=== PATIENT | female | born 1975 | race Caucasian/White ===

== ENCOUNTER 2017-12-10 20:05 | Emergency (ER) | payer SELFPAY ==
--- NOTE | 2017-12-10 20:31 | EDPHY ---
H & P Smoking Status: Current every day smoker Time Seen by Provider: 12/10/17 20:19 HPI/ROS: CHIEF COMPLAINT: Chest pain HISTORY OF PRESENT ILLNESS: 42-year-old woman presents with intermittent chest pain which is been present for the last week. She says symptoms come on last less than 1 min or located over her left anterior chest. Sometimes associated with dizziness. Especially when she is lying down. Symptoms she also feels her heart skips a beat like her heart is"dropping."She just did travel on a bus from [facility] and arrived here 2 days ago. No leg swelling or leg pain. She did have a stress test 6 months ago treadmill in [place] which she passed and did not have evidence of ACS. Symptoms mild. REVIEW OF SYSTEMS: Eye: no change in vision ENT: no sore throat Cardiac: HPI Pulmonary: no cough or SOB Abdomen: no vomiting, diarrhea, abdominal pain Musculoskeletal: no back pain or neck pain Skin: no rash Neuro: Intermittent dizziness which she describes as spinning without headache or neck pain. Not currently present. Constitutional: no fever : no urinary symptoms A comprehensive 10 point review of systems is otherwise negative aside from elements mentioned in the history of present illness. PAST MEDICAL HISTORY: Type 2 diabetes, high cholesterol, hypertension. With history of previous PVCs. Social history: Tobacco smoking, no cocaine. General Appearance: Alert and conversant, cooperative. Eyes: No scleral icterus. ENT, Mouth: Normal mucous membranes. Respiratory: Normal respiratory effort, breath sounds equal, lungs are clear to auscultation. Cardiovascular: Regular rate and rhythm. Gastrointestinal: Abdomen is soft and non tender. Neurological: Alert, face symmetric, normal motor and sensory in extremities. Normal [id number] bilaterally and fluent speech. Extraocular motion intact and pupils equal and reactive. Skin: Warm and dry, no rashes. Musculoskeletal: No peripheral edema. No calf tenderness. Psychiatric: Not agitated. Emergency Department course/MDM: Patient was telling me initially she was concerned about stroke but I think that is unlikely. She does have risk factors but and EKG without ischemic changes and a low suspicion history. HEART score of 2 for risk factors, low risk for MACE from ACS. 2143: Plan for repeat EKG and troponin at 3:00 a.m., discharge if negative. Signed out to [facility] at 0. (Aquino,Alexi S) Constitutional: Initial Vital Signs Temperature (C) 36.8 C 12/10/17 20:07 Heart Rate 96 12/10/17 20:07 Respiratory Rate 16 12/10/17 20:07 Blood Pressure 160/107 H 12/10/17 20:07 O2 Sat (%) 96 12/10/17 20:07 O2 Delivery Mode Room Air Medical Decision Making - Diagnostics Imaging: I viewed and interpreted images myself - Diagnostics EKG Interpretation: 12-lead EKG interpreted by me; official reading is in trace master. My interpretation is sinus rhythm rate 85 with PVC and QT 408. (Alexi Aquino) Imaging Results: Imaging Impressions Chest X-Ray 12/10/17 20:42 Impression: No evidence of acute cardiopulmonary abnormality. ED Course/Re-evaluation: 1234AM: Patient is resting comfortably and sleeping. She has no complaints. She had a repeat EKG repeat troponin. Both troponins are negative. Initial troponin and 2nd troponin. Her 2nd EKG shows no acute ischemic change. Is unchanged from her previous EKG. She is not actively having chest pain. She does have cardiovascular risk factors. I do recommend she follows up with primary care doctor. Additionally discussed return precautions with her she understands to return emergency room she develops worsening chest pain or shortness of breath. Recommend refraining from smoking. Return precautions discussed with her she understands. She is comfortable being discharged. (Alejo Nino) Differential Diagnosis: Differential diagnosis considered for chest pain including but not limited to myocardial ischemia, aortic dissection, pericarditis, pulmonary embolus, chest wall pain, pleural inflammation and pulmonary infectious causes. (Alexi Aquino) - Data Points Laboratory Results: Laboratory Results 12/10/17 20:25 12/10/17 20:25 12/10/17 12/10/17 12/10/17 23:30 20:25 20:25 WBC RBC Hgb Hct MCV MCH MCHC RDW Plt Count MPV Neut % (Auto) Lymph % (Auto) [place] % (Auto) Eos % (Auto) Baso % (Auto) Nucleat RBC Rel Count Absolute Neuts (auto) Absolute Lymphs (auto) Absolute Monos (auto) Absolute Eos (auto) Absolute Basos (auto) Absolute Nucleated RBC Immature Gran % Immature Gran # D-Dimer 0.42 ug/mLFEU ug/mLFEU (0.00-0.50) Sodium 141 mEq/L mEq/L (135-145) Potassium 4.2 mEq/L mEq/L (3.3-5.0) Chloride 103 mEq/L mEq/L (97-110) Carbon Dioxide 22 mEq/l mEq/l (22-31) Anion Gap 16 mEq/L mEq/L (8-16) BUN 11 mg/dL mg/dL (7-23) Creatinine 0.8 mg/dL mg/dL (0.6-1.0) Estimated GFR > 60 Glucose 196 mg/dL H mg/dL (70-100) Calcium 9.8 mg/dL mg/dL (8.5-10.4) Troponin I < 0.012 ng/mL ng/mL < 0.012 ng/mL ng/mL (0.000-0.034) (0.000-0.034) 12/10/17 20:25 WBC 12.94 10^3/uL H 10^3/uL (3.80-9.50) RBC 5.12 10^6/uL 10^6/uL (4.18-5.33) Hgb 15.6 g/dL g/dL (12.6-16.3) Hct 46.1 % % (38.0-47.0) MCV 90.0 fL fL (81.5-99.8) MCH 30.5 pg pg (27.9-34.1) MCHC 33.8 g/dL g/dL (32.4-36.7) RDW 12.9 % % (11.5-15.2) Plt Count 297 10^3/uL 10^3/uL (150-400) MPV 11.2 fL fL (8.7-11.7) Neut % (Auto) 60.1 % % (39.3-74.2) Lymph % (Auto) 31.3 % % (15.0-45.0) [place] % (Auto) 6.1 % % (4.5-13.0) Eos % (Auto) 1.5 % % (0.6-7.6) Baso % (Auto) 0.5 % % (0.3-1.7) Nucleat RBC Rel Count 0.0 % % (0.0-0.2) Absolute Neuts (auto) 7.76 10^3/uL H 10^3/uL (1.70-6.50) Absolute Lymphs (auto) 4.05 10^3/uL H 10^3/uL (1.00-3.00) Absolute Monos (auto) 0.79 10^3/uL 10^3/uL (0.30-0.80) Absolute Eos (auto) 0.20 10^3/uL 10^3/uL (0.03-0.40) Absolute Basos (auto) 0.07 10^3/uL 10^3/uL (0.02-0.10) Absolute Nucleated RBC 0.00 10^3/uL 10^3/uL (0-0.01) Immature Gran % 0.5 % % (0.0-1.1) Immature Gran # 0.07 10^3/uL 10^3/uL (0.00-0.10) D-Dimer Sodium Potassium Chloride Carbon Dioxide Anion Gap BUN Creatinine Estimated GFR Glucose Calcium Troponin I Departure - Departure Disposition: Home, Routine, Self-Care Clinical Impression: Chest pain Qualifiers: Chest pain type: unspecified Qualified Code(s): R07.9 - Chest pain, unspecified Condition: Good Instructions: Chest Pain (ED) Additional Instructions: 1. Return emergency room if you have worsening symptoms questions or concerns. Referrals: [facility],. [Clinic] - As per Instructions
--- NOTE | 2017-12-10 20:42 | CPEKG ---
Heart Rate: 85 RR Interval: 706 P-R Interval: 148 QRSD Interval: 100 QT Interval: 408 QTC Interval: 486 P [place]: 28 QRS [place]: 40 T Wave [place]: 48 EKG Severity - BORDERLINE ECG - EKG Impression: SINUS RHYTHM EKG Impression: VENTRICULAR PREMATURE COMPLEX EKG Impression: BORDERLINE PROLONGED QT INTERVAL Electronically Signed By: Alexi Aquino 10-Dec-2017 20:45:24
[2017-12-10 20:49] LABS: PLATELET COUNT 297 10^3/uL (150-400)
--- NOTE | 2017-12-11 00:13 | CPEKG ---
Heart Rate: 57 RR Interval: 1053 P-R Interval: 164 QRSD Interval: 100 QT Interval: 484 QTC Interval: 472 P [place]: 38 QRS [place]: 40 T Wave [place]: 21 EKG Severity - BORDERLINE ECG - EKG Impression: SINUS RHYTHM EKG Impression: BORDERLINE T WAVE ABNORMALITIES Electronically Signed By: Alexi Aquino 11-Dec-2017 14:12:27
[2017-12-11 00:38] VITALS: BP 113/55
== END 2017-12-11 00:40 | disposition home or self-care (01) ==
DX: R07.9 Chest pain, unspecified (principal); E11.9 Type 2 diabetes mellitus without complications; I10 Essential (primary) hypertension; F17.200 Nicotine dependence, unspecified, uncomplicated

== ENCOUNTER 2017-12-24 15:09 | Emergency (ER) | payer BC, MEDICAID ==
--- NOTE | 2017-12-24 15:21 | CPEKG ---
Heart Rate: 85 RR Interval: 706 P-R Interval: 148 QRSD Interval: 102 QT Interval: 416 QTC Interval: 495 P [place]: 34 QRS [place]: 33 T Wave [place]: 45 EKG Severity - BORDERLINE ECG - EKG Impression: SINUS RHYTHM EKG Impression: BORDERLINE PROLONGED QT INTERVAL Electronically Signed By: Polina Anderson 24-Dec-2017 19:58:42
[2017-12-24] MEDS ORDERED: NS 500 ML IV ONE (15:35)
[2017-12-24 15:50] LABS: PLATELET COUNT 328 10^3/uL (150-400)
--- NOTE | 2017-12-24 16:26 | EDPHY ---
H & P Time Seen by Provider: 12/24/17 15:18 HPI/ROS: HPI Palpitations, shortness of breath. 42-year-old female by private vehicle. This patient reports that for the last 2 -3 weeks she has had intermittent palpitations. She has had issues with PVCs in the past. She reports that today her palpitations were worse and she believes that she is in bigeminy or trigeminy. She also reports having associated shortness of breath and feeling anxious. She denies chest pain. ROS: Constitutional: No fever, no chills. No weakness. Eyes: No discharge. No changes in vision. ENT: No sore throat. No nasal congestion or rhinorrhea. Respiratory: No cough. No shortness of breath. Cardiac: No chest pain, no palpitations. Gastrointestinal: No abdominal pain, no vomiting, no diarrhea. Genitourinary: No hematuria. No dysuria or increased frequency with urination. Musculoskeletal: No back pain. No neck pain. No myalgias or arthralgias. Skin: No rashes. Neurological: No headache. No focal weakness or altered sensation. Past medical history: Hypertension, type 2 diabetes, PVCs, hypothyroidism, hyperlipidemia. Medications include losartan, metoprolol, metformin. Social history: She does drink caffeinated beverages. 1 cup of coffee in the morning. Denies any methamphetamine, cocaine or other street drug abuse. Denies alcohol. She is here by herself. Primary care is through [facility]. She does not smoke. Physical Exam: General Appearance: Alert, anxious but no distress. This patient is responding to questions appropriately and in full sentences. This patient appears well-hydrated and well-nourished. Eyes: Pupils equal and round no pallor or injection. No lid edema, erythema or injection. Respiratory: There are no retractions, lungs are clear to auscultation with good air movement bilaterally. Cardiovascular: Regular rate and rhythm with intermittent PVCs. No murmur. Gastrointestinal: Abdomen is soft and nontender, no masses, bowel sounds normal. No focal tenderness at McBurney's point. No Brito sign. Neurological: Motor sensory function is grossly intact. Cranial nerves are normal. Gait is normal. Skin: Warm and dry, no rashes. Musculoskeletal: Neck is supple and nontender. Extremities are symmetrical. All joints range without pain or impingement. Psychiatric: No agitation. No depression. Database: EKG: EKG time is 3:19 p.m.; EKG shows a narrow complex normal sinus rhythm with a ventricular rate of 85. The HI, QRS, QT intervals are within normal limits. There are no ST-T wave changes indicative of ischemic or injury pattern. No evidence of right heart strain. Interpreted by me. Cardiac rhythm strip time 3:15 p.m. Shows trigeminal PVCs. Imaging: Chest x-ray PA and lateral; the cardiac mediastinal silhouette is unremarkable. No evidence of infiltrate or pneumothorax. No acute cardiopulmonary disease process noted. Interpreted by me. Procedures: Emergency department course: IV placed. The patient was placed on a cardiac cath tech. The patient was started on IV normal saline with 500 cc to be given over the next hour. Vital signs reviewed. She is hypertensive and mildly tachypneic. She will be given 0.5 mg of IV Ativan for anxiety. 4:45 p.m., patient re-evaluated. Resting comfortably at this time. 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 Blood pressure currently 163/103. Patient is feeling better. Results of diagnostic workup discussed with her. She reports that she is currently out of her metoprolol and does not have this medication for evening dose. She takes 25 mg twice daily. She did take her morning dose. She was given 25 mg in the emergency department now. 5:15 p.m., patient re-evaluated. Blood pressure currently 129/95. dough mixer operator shows a narrow complex sinus rhythm with ventricular rate of 72. Pulse oximetry 95% on room air. I discussed her remaining blood test results with her. I discussed the importance of taking her medications as prescribed routinely. She feels comfortable going home and I feel she is safe for discharge. Her emergency department workup has been reassuring. I have told her to avoid caffeinated beverages. She is to continue taking her medications as prescribed. She is to follow up with her primary care physician on Sunday or Sunday of this week for re-evaluation. She feels comfortable with this plan. Return to emergency department precautions were discussed with her. All of her questions were answered. She was discharged from the emergency department in good condition. Differential Diagnosis: The differential diagnosis on this patient includes but is not limited to anxiety, PVCs, uncontrolled hypertension. Thyroid storm, atrial fibrillation, SVT unlikely. This represents a partial list of diagnoses considered. These considerations are based on history, physical exam, past history, reassessment and diagnostic testing. Smoking Status: Current every day smoker Constitutional: Initial Vital Signs Temperature (C) 36.8 C 12/24/17 15:09 Heart Rate 105 H 12/24/17 15:09 Respiratory Rate 24 H 12/24/17 15:09 Blood Pressure 181/115 H 12/24/17 15:09 O2 Sat (%) 98 12/24/17 15:09 O2 Delivery Mode Room Air Allergies/Adverse Reactions: acetaminophen [From Vicodin] Allergy (Verified 12/24/17 15:19) hydrocodone [From Vicodin] Allergy (Verified 12/24/17 15:19) Home Medications: Medication Instructions Recorded Aspirin 12/24/17 Losartan Potassium 12/24/17 Metformin HCl 12/24/17 Metoprolol Succinate 12/24/17 Medical Decision Making - Diagnostics Imaging Results: Imaging Impressions Chest X-Ray 12/24/17 15:53 Impression: 1. No acute pulmonary disease. 2. No pneumothorax. - Data Points Laboratory Results: Laboratory Results 12/24/17 15:14 12/24/17 15:14 12/24/17 12/24/17 12/24/17 15:14 15:14 15:14 WBC RBC Hgb Hct MCV MCH MCHC RDW Plt Count MPV Neut % (Auto) Lymph % (Auto) [place] % (Auto) Eos % (Auto) Baso % (Auto) Nucleat RBC Rel Count Absolute Neuts (auto) Absolute Lymphs (auto) Absolute Monos (auto) Absolute Eos (auto) Absolute Basos (auto) Absolute Nucleated RBC Immature Gran % Immature Gran # D-Dimer 0.33 ug/mLFEU ug/mLFEU (0.00-0.50) Sodium 141 mEq/L mEq/L (135-145) Potassium 4.5 mEq/L mEq/L (3.3-5.0) Chloride 106 mEq/L mEq/L (97-110) Carbon Dioxide 24 mEq/l mEq/l (22-31) Anion Gap 11 mEq/L mEq/L (8-16) BUN 12 mg/dL mg/dL (7-23) Creatinine 0.7 mg/dL mg/dL (0.6-1.0) Estimated GFR > 60 Glucose 155 mg/dL H mg/dL (70-100) Calcium 9.5 mg/dL mg/dL (8.5-10.4) Troponin I < 0.012 ng/mL ng/mL (0.000-0.034) NT-Pro-B Natriuret Pep 237 pg/mL H pg/mL (0-125) TSH Pending Beta HCG, Qual NEGATIVE 12/24/17 15:14 WBC 10.73 10^3/uL H 10^3/uL (3.80-9.50) RBC 4.87 10^6/uL 10^6/uL (4.18-5.33) Hgb 15.0 g/dL g/dL (12.6-16.3) Hct 44.6 % % (38.0-47.0) MCV 91.6 fL fL (81.5-99.8) MCH 30.8 pg pg (27.9-34.1) MCHC 33.6 g/dL g/dL (32.4-36.7) RDW 13.0 % % (11.5-15.2) Plt Count 328 10^3/uL 10^3/uL (150-400) MPV 10.8 fL fL (8.7-11.7) Neut % (Auto) 61.7 % % (39.3-74.2) Lymph % (Auto) 28.0 % % (15.0-45.0) [place] % (Auto) 7.3 % % (4.5-13.0) Eos % (Auto) 1.8 % % (0.6-7.6) Baso % (Auto) 0.7 % % (0.3-1.7) Nucleat RBC Rel Count 0.0 % % (0.0-0.2) Absolute Neuts (auto) 6.64 10^3/uL H 10^3/uL (1.70-6.50) Absolute Lymphs (auto) 3.00 10^3/uL 10^3/uL (1.00-3.00) Absolute Monos (auto) 0.78 10^3/uL 10^3/uL (0.30-0.80) Absolute Eos (auto) 0.19 10^3/uL 10^3/uL (0.03-0.40) Absolute Basos (auto) 0.07 10^3/uL 10^3/uL (0.02-0.10) Absolute Nucleated RBC 0.00 10^3/uL 10^3/uL (0-0.01) Immature Gran % 0.5 % % (0.0-1.1) Immature Gran # 0.05 10^3/uL 10^3/uL (0.00-0.10) D-Dimer Sodium Potassium Chloride Carbon Dioxide Anion Gap BUN Creatinine Estimated GFR Glucose Calcium Troponin I NT-Pro-B Natriuret Pep TSH Beta HCG, Qual Medications Given: Discontinued Medications Sodium Chloride (Ns) 500 mls @ 1,000 mls/hr IV EDNOW ONE PRN Reason: Protocol Stop: 12/24/17 16:04 Last Admin: 12/24/17 15:47 Dose: 500 mls Lorazepam (Ativan Injection) 0.5 mg IVP EDNOW ONE Stop: 12/24/17 16:28 Last Admin: 12/24/17 16:51 Dose: 0.5 mg Metoprolol Tartrate (Lopressor) 25 mg PO EDNOW ONE Stop: 12/24/17 16:48 Last Admin: 12/24/17 16:50 Dose: 25 mg Departure - Departure Disposition: Home, Routine, Self-Care Clinical Impression: PVCs (premature ventricular contractions), Hypertension, Anxiety Condition: Good Instructions: Anxiety (ED), Premature Atrial Contractions (ED) Additional Instructions: Read and follow provided instructions. Follow-up with your primary care physician in 1-2 days for re-evaluation. Take your medication as prescribed. Do not drink coffee or other caffeinated beverages. Return to the emergency department for worsening symptoms, shortness of breath, chest pain, palpitations or other serious concerns. Referrals: NONE *PRIMARY CARE P,. [Primary Care Provider] - As per Instructions
[2017-12-24] MEDS ORDERED: LORazepam 2 MG/ML INJ IVP ONE (16:27)
[2017-12-24] MEDS ORDERED: METOPROLOL TARTRATE 25 MG TAB PO ONE (16:47)
[2017-12-24 17:24] VITALS: BP 138/88
== END 2017-12-24 17:23 | disposition home or self-care (01) ==
LOC: EDUNIT#
DX: I49.3 Ventricular premature depolarization (principal); I10 Essential (primary) hypertension; F41.9 Anxiety disorder, unspecified; E11.9 Type 2 diabetes mellitus without complications; F17.200 Nicotine dependence, unspecified, uncomplicated; Z79.84 Long term (current) use of oral hypoglycemic drugs
CPT/HCPCS: 96374; J2060

== ENCOUNTER 2018-04-14 12:38 | Emergency (ER) | payer MEDICAID ==
[2018-04-14 13:09] LABS: PLATELET COUNT 398 10^3/uL (150-400)
--- NOTE | 2018-04-14 13:12 | EDPHY ---
HPI/HX/ROS/PE/MDM Narrative: CHIEF COMPLAINT: "I had some chest pains for a couple days;" shortness of breath HPI: The patient is a 43 y/o female with a history of diabetes, hypertension, and pleurisy who complains of 2-3 days of intermittent central chest pain that is not present today. She's previously had episodes of pleurisy that felt somewhat similar to today, but that discomfort generally improved with positioning, which is different from her recent episode of chest pain. Last night she felt vaguely dizzy with shortness of breath and mild chest pain so she took aspirin around 20:30. She saw EMS last night and was advised to seek care due to concern for a respiratory infection. Her pain was not present this morning, but she does have some shortness of breath and a cough so she came to the ED. She denies fever, abdominal pain, vomiting, diarrhea, weakness, urinary symptoms. REVIEW OF SYSTEMS: A comprehensive 10 system review of systems is otherwise negative aside from elements mentioned in the history of present illness. PMH: Type 2 diabetes, hypertension, PVCs, hypertension, hypothyroidism, pleurisy. SOCIAL HISTORY: Smoker. PCP: [facility]. PHYSICAL EXAM: General:Patient is alert, in no acute distress. ENT:Eyes are normal to inspection. ENT inspection normal. Neck: Normal inspection. Full range of motion. Respiratory:No respiratory distress. Breath sounds normal bilaterally. Cardiovascular: Regular rate and rhythm. Strong peripheral pulses. Normal cap refill. Abdomen:The abdomen is nontender to palpation. There are no peritoneal signs. Back: Normal to inspection. No tenderness to palpation. Skin: Normal color. No rash. Warm and dry. Extremities: Normal appearance. Full range of motion. Neuro: Oriented x3. Normal motor function. Normal sensory function. ED Course: This is a 43 y/o female who presents with a 2-3-day history of intermittent chest pain that feels somewhat similar to prior episodes of pleurisy and is currently not present. She reports some associated dyspnea and a cough. On exam , she is afebrile and has clear lungs. Suspect recurrent pleurisy. Plan for IV, labs, EKG, chest x-ray. POC troponin negative. The 12 lead EKG was interpreted by myself. Sinus tachycardia. See hard copy and/ or "tracemaster" electronic copy for interpretation. Chest x-ray: negative D-dimer negative. Reassessed patient to discuss findings. She is sleeping comfortably. She will be discharged home with standard care and follow up instructions. Return precautions discussed. - Data Points Imaging Results: Imaging Impressions Chest X-Ray 04/14/18 12:54 Impression: No acute abnormality, or significant interval change from previous studies in November 2017. Imaging: I viewed and interpreted images myself Laboratory Results: Laboratory Results 04/14/18 12:50 04/14/18 12:50 04/14/18 04/14/18 04/14/18 12:53 12:50 12:50 WBC RBC Hgb Hct MCV MCH MCHC RDW Plt Count MPV Neut % (Auto) Lymph % (Auto) [place] % (Auto) Eos % (Auto) Baso % (Auto) Nucleat RBC Rel Count Absolute Neuts (auto) Absolute Lymphs (auto) Absolute Monos (auto) Absolute Eos (auto) Absolute Basos (auto) Absolute Nucleated RBC Immature Gran % Immature Gran # D-Dimer 0.50 ug/mLFEU ug/mLFEU (0.00-0.50) Sodium Potassium Chloride Carbon Dioxide Anion Gap BUN Creatinine Estimated GFR Glucose Calcium POC Troponin I 0.01 ng/mL ng/mL (0.00-0.08) Beta HCG, Qual NEGATIVE 04/14/18 04/14/18 12:50 12:50 WBC 15.14 10^3/uL H 10^3/uL (3.80-9.50) RBC 5.31 10^6/uL 10^6/uL (4.18-5.33) Hgb 15.8 g/dL g/dL (12.6-16.3) Hct 46.6 % % (38.0-47.0) MCV 87.8 fL fL (81.5-99.8) MCH 29.8 pg pg (27.9-34.1) MCHC 33.9 g/dL g/dL (32.4-36.7) RDW 13.0 % % (11.5-15.2) Plt Count 398 10^3/uL 10^3/uL (150-400) MPV 10.0 fL fL (8.7-11.7) Neut % (Auto) 63.5 % % (39.3-74.2) Lymph % (Auto) 26.6 % % (15.0-45.0) [place] % (Auto) 7.5 % % (4.5-13.0) Eos % (Auto) 1.1 % % (0.6-7.6) Baso % (Auto) 0.7 % % (0.3-1.7) Nucleat RBC Rel Count 0.0 % % (0.0-0.2) Absolute Neuts (auto) 9.63 10^3/uL H 10^3/uL (1.70-6.50) Absolute Lymphs (auto) 4.02 10^3/uL H 10^3/uL (1.00-3.00) Absolute Monos (auto) 1.13 10^3/uL H 10^3/uL (0.30-0.80) Absolute Eos (auto) 0.16 10^3/uL 10^3/uL (0.03-0.40) Absolute Basos (auto) 0.11 10^3/uL H 10^3/uL (0.02-0.10) Absolute Nucleated RBC 0.00 10^3/uL 10^3/uL (0-0.01) Immature Gran % 0.6 % % (0.0-1.1) Immature Gran # 0.09 10^3/uL 10^3/uL (0.00-0.10) D-Dimer Sodium 136 mEq/L mEq/L (135-145) Potassium 4.6 mEq/L mEq/L (3.3-5.0) Chloride 107 mEq/L mEq/L (97-110) Carbon Dioxide 19 mEq/l L mEq/l (22-31) Anion Gap 10 mEq/L mEq/L (8-16) BUN 11 mg/dL mg/dL (7-23) Creatinine 0.6 mg/dL mg/dL (0.6-1.0) Estimated GFR > 60 Glucose 147 mg/dL H mg/dL (70-100) Calcium 9.9 mg/dL mg/dL (8.5-10.4) POC Troponin I Beta HCG, Qual Medications Given: Discontinued Medications Sodium Chloride (Ns) 1,000 mls @ 0 mls/hr IV EDNOW ONE; Wide Open PRN Reason: Protocol Stop: 04/14/18 13:29 Last Admin: 04/14/18 13:35 Dose: 1,000 mls Point of Care Test Results: Chemistry 04/14/18 12:53 POC Troponin I 0.01 ng/mL ng/mL (0.00-0.08) General Time Seen by Provider: 04/14/18 12:53 Initial Vital Signs: Initial Vital Signs Temperature (C) 36.9 C 04/14/18 12:40 Heart Rate 105 H 04/14/18 12:40 Respiratory Rate 18 04/14/18 12:40 Blood Pressure 129/82 H 04/14/18 12:40 O2 Sat (%) 96 04/14/18 12:40 O2 Delivery Mode Room Air Allergies/Adverse Reactions: acetaminophen [From Vicodin] Allergy (Verified 04/14/18 12:40) hydrocodone [From Vicodin] Allergy (Verified 04/14/18 12:40) Home Medications: Medication Instructions Recorded Aspirin 12/24/17 Losartan Potassium 12/24/17 Metformin HCl 12/24/17 Metoprolol Succinate 12/24/17 Departure - Departure Disposition: Home, Routine, Self-Care Clinical Impression: Pleurisy Condition: Good Instructions: Pleurisy (ED) Additional Instructions: 1. Take 600mg ibuprofen every 8 hours as needed for pain and inflammation over the next 2-3 days. 2. I recommend quitting cigarette smoking as this can contribute to your symptoms and cause other negative health impacts. 3. Please follow up with your primary care provider as needed for unimproved symptoms over the next 2-3 days. 4. Return to the ED for worsening of condition. Referrals: Delmis Christie PA [Primary Care Provider] - As per Instructions Report Scribed for: Ever Thomas Report Scribed by: Sydnie Shah Date of Report: 04/14/18 Time of Report: 13:27 Physician Review and Approval Statement: Portions of this note were transcribed by an ED scribe. I personally performed the history, physical exam, and medical decision making; and confirm the accuracy of the information in the transcribed note.
[2018-04-14] MEDS ORDERED: NS 1,000 ML IV ONE (13:28)
[2018-04-14 14:21] VITALS: BP 134/77
--- NOTE | 2018-04-14 14:21 | CPEKG ---
Test Reason : OPEN Blood Pressure : / mmHG Vent. Rate : 101 BPM Atrial Rate : 101 BPM P-R Int : 135 ms QRS Dur : 092 ms QT Int : 352 ms P-R-T Axes : 031 035 074 degrees QTc Int : 457 ms Sinus tachycardia Confirmed by Drew Aggarwal ([id number]) on 04/14/2018 2:20:48 PM Referred By: Confirmed By:Drew Aggarwal
== END 2018-04-14 14:21 | disposition home or self-care (01) ==
DX: R09.1 Pleurisy (principal); E86.9 Volume depletion, unspecified
CPT/HCPCS: 84484-PO

== ENCOUNTER 2018-06-12 12:18 | Emergency (ER) | payer MEDICAID ==
--- NOTE | 2018-06-12 13:35 | EDPHY ---
H & P Time Seen by Provider: 06/12/18 12:56 HPI/ROS: HPI Fall. Lower back pain. 43-year-old female on foot. She is currently homeless. She reports that she fell earlier this morning on her buttocks. She complains of mid sacral pain. She has had no bowel or bladder incontinence. Denies any loss of sensation or weakness in her extremities. No history of malignancy. Pain described as worse on the left side. She has not had a fever. ROS: Constitutional: No fever, no chills. No weakness. Gastrointestinal: No abdominal pain, no vomiting, no diarrhea. Genitourinary: No hematuria. No dysuria or increased frequency with urination. Musculoskeletal: As above. No neck pain. She denies extremity pain. Skin: No rashes. No lacerations or abrasions. Neurological: No headache. No focal weakness or altered sensation. Past medical history: Hypertension, type 2 diabetes, arrhythmia, hypothyroid, hyperlipidemia. Primary care is through [facility]. Social history: She is homeless. Smokes occasionally. She denies alcohol. She denies IV drugs and street drugs. Physical Exam: General Appearance: Alert, no distress. This patient is responding to questions appropriately and in full sentences. This patient appears well- hydrated and well-nourished. Head: Normocephalic atraumatic. Face: Facial bones are stable on palpation. Eyes: Pupils equal and round and reactive to light, no pallor or injection. No lid erythema or edema. Neurological: Motor sensory function is intact. Cranial nerves are normal. Cerebellar function intact. Skin: Warm and dry, no rashes. No lacerations, abrasions or contusions. Musculoskeletal: Neck is supple and nontender. The trachea is midline. No midline cervical, thoracic, lumbar or sacral tenderness on palpation. No tenderness on palpation over the coccyx. No flank tenderness on palpation. She does have tenderness, left of midline, mid sacrum, no bony step-off or deformity noted on palpation. There is no edema, erythema, warmth, fluctuance or ecchymosis noted. She has no midline cervical, thoracic, lumbar, sacral tenderness on palpation. She has a negative same side and cross side straight leg raise test. She is neurologically intact in all myotomes in dermatomes of the bilateral lower extremities. Extremities are symmetrical, full range of motion. All joints in the bilateral upper and bilateral lower extremities range without pain or impingement. No tenderness on palpation of the long bones in the bilateral upper and bilateral lower extremities. Psychiatric: No agitation. No depression. Database: EKG: Imaging: Sacral coccyx x-ray series: No sacral or coccygeal fracture, subluxation, dislocation noted. Interpreted by myself. I also reviewed the report offered by radiologist. Procedures: Emergency department course: Triage vital signs reviewed. She is moderately hypertensive. She is afebrile. Vital signs are otherwise normal. Patient had x-rays ordered from triage. I discussed the results of these x-rays with her. She is up and ambulatory under her own power. I discussed high-dose ibuprofen for the next 3 days and follow up with [facility] in 2-3 days for re-evaluation. She is in agreement with this plan. Return to emergency department precautions were thoroughly reviewed with her. All of her questions were answered. She was discharged from the emergency department in good condition. Differential Diagnosis: The differential diagnosis on this patient includes but is not limited to sacral coccygeal contusion. Fracture, subluxation, dislocation, other significant traumatic injury unlikely. This represents a partial list of diagnoses considered. These considerations are based on history, physical exam , past history, reassessment and diagnostic testing. Smoking Status: Current every day smoker Constitutional: Initial Vital Signs Temperature (C) 36.7 C 06/12/18 12:27 Heart Rate 80 06/12/18 12:27 Respiratory Rate 16 06/12/18 12:27 Blood Pressure 156/88 H 06/12/18 12:27 O2 Sat (%) 97 06/12/18 12:27 O2 Delivery Mode Room Air Allergies/Adverse Reactions: acetaminophen [From Vicodin] Allergy (Verified 04/14/18 12:40) hydrocodone [From Vicodin] Allergy (Verified 04/14/18 12:40) Home Medications: Medication Instructions Recorded Aspirin 12/24/17 Losartan Potassium 12/24/17 Metformin HCl 12/24/17 Metoprolol Succinate 12/24/17 Medical Decision Making - Diagnostics Imaging Results: Imaging Impressions Sacrum and Coccyx X-Ray 06/12/18 12:36 Impression: No sacral or coccygeal fracture identified. Departure - Departure Disposition: Home, Routine, Self-Care Clinical Impression: Sacral contusion Condition: Good Instructions: Coccyx Injury (ED), Back Pain (ED) Additional Instructions: Read and follow provided instructions. Follow-up with your primary care physician in 1-2 days for re-evaluation. Ibuprofen dosin mg every 6 hours with meals for the next 3 days only. Take only as needed for pain. Return to the emergency department for worsening pain, bowel or bladder incontinence, loss of sensation or weakness in your lower extremities, pain persisting greater than 5 days and not improving or other serious concerns. Please allow Ms Hammer the use of a bottom bunk while at the correction through per Dr Anderson. Referrals: Delmis Christie PA [Primary Care Provider] - As per Instructions
[2018-06-12 13:52] VITALS: BP 134/75
== END 2018-06-12 13:50 | disposition home or self-care (01) ==
LOC: EDUNIT#
DX: S30.0XXA Contusion of lower back and pelvis, initial encounter (principal); W19.XXXA Unspecified fall, initial encounter; I10 Essential (primary) hypertension; E78.5 Hyperlipidemia, unspecified; E03.9 Hypothyroidism, unspecified; E11.9 Type 2 diabetes mellitus without complications; F17.200 Nicotine dependence, unspecified, uncomplicated; Z59.0 Homelessness

== ENCOUNTER 2018-08-07 15:46 | Emergency (ER) | payer MEDICAID ==
--- NOTE | 2018-08-07 16:05 | EDPHY ---
H & P Stated Complaint: Chest Pain x 2 days Time Seen by Provider: 08/07/18 15:53 HPI/ROS: CHIEF COMPLAINT: Chest pain, dyspnea times several months HISTORY OF PRESENT ILLNESS: 43-year-old homeless female took the bus to the ER complaining of chest pain, palpitations, dyspnea, for the past she several months, more pronounced in the past 2-3 days. URI symptoms 7 days ago by and large resolved. No syncope or near syncope. No cocaine use. No back or flank pain. No headache. No abdominal pain. No nausea or vomiting. No cough or flu -like symptoms. No URI symptoms. Nonpleuritic. No definitive pattern. Not related to exertion however Patient has been seen most recently the [facility] 1 week ago for same complaint also seen by Anjel clarke 3 months ago for same Denies: Unilateral leg swelling, hemoptysis, surgery within the past 4 weeks, prior DVT or PE history, exogenous estrogen use PRIMARY CARE PROVIDER: [facility] REVIEW OF SYSTEMS: 10 systems reviewed and negative with the exception of the elements mentioned in the history of present illness PAST MEDICAL & SURGICAL HISTORY: No prior DVT or PE history. History of diabetes. No history of acute coronary syndrome SOCIAL HISTORY:1 pack per day tobacco Family history: No family history of premature coronary artery disease or coagulopathic disorder PHYSICAL EXAM (Prior to examination, patient consented to physical exam, hands were washed and my usual and customary physical exam procedures followed) 1) GENERAL: Well-developed, well-nourished, alert and oriented. Appears to be in no acute distress. 2) HEAD: Normocephalic, atraumatic 3) HEENT: Pupils equal, round, reactive to light bilaterally. Sclera anicteric. Nasopharynx, oropharynx, clear, no lesions. MoistDry mucous membranes. Ears bilaterally with normal tympanic membranes. 4) NECK: Full range of motion, no meningeal signs. No carotid bruit 5) LUNGS: Clear auscultation bilaterally, no wheezes, no rhonchi, no retractions. 6) HEART: Regular rate and rhythm, no murmur, no heave, no gallop. 7) ABDOMEN: No guarding, no rebound, no focal tenderness, negative McBurney's, negative Brito's, negative Rovsing's, negative peritoneal sign, 8) MUSCULOSKELETAL: Moving all extremities, no focal areas of tenderness, no obvious trauma. No peripheral edema or discoloration. No leg swelling either bilateral or unilateral. 9) BACK: No CVA tenderness, no midline vertebral tenderness, no fluctuance, no step-off, no obvious trauma, no visual or palpable abnormality. 10) SKIN: No rash, no petechiae. 11) Psychiatric: Patient is oriented X 3, there is no agitation. DIFFERENTIAL DIAGNOSIS: In no particular order, including but not limited to myocardial ischemia, pulmonary embolus, chest wall pain, pleural inflammation and pulmonary infectious causes. - Personal History LMP (Females 10-55): Now Current Tetanus Diphtheria and Acellular Pertussis (TDAP): Yes - Medical/Surgical History Hx Asthma: No Hx Chronic Respiratory Disease: No Hx Diabetes: Yes Hx Cardiac Disease: Yes Hx Renal Disease: No Hx Cirrhosis: No Hx Alcoholism: No Hx HIV/AIDS: No Hx Splenectomy or Spleen Trauma: No Other PMH: htn, dm2, arrythmia, hypothyroid, high chol, - Social History Smoking Status: Heavy smoker Constitutional: Initial Vital Signs Temperature (C) 36.8 C 08/07/18 15:50 Heart Rate 68 08/07/18 15:50 Respiratory Rate 18 08/07/18 15:50 Blood Pressure 151/92 H 08/07/18 15:50 O2 Sat (%) 98 08/07/18 15:50 O2 Delivery Mode Room Air Allergies/Adverse Reactions: acetaminophen [From Vicodin] Allergy (Verified 04/14/18 12:40) hydrocodone [From Vicodin] Allergy (Verified 04/14/18 12:40) Home Medications: Medication Instructions Recorded Aspirin 12/24/17 Losartan Potassium 12/24/17 Metformin HCl 12/24/17 Metoprolol Succinate 12/24/17 Azithromycin [Zithromax] 500 mg PO DAILY #1 tablet 08/07/18 Medical Decision Making - Diagnostics Imaging Results: Imaging Impressions Chest X-Ray 08/07/18 16:01 Impression: 1. Patchy infiltrate/pneumonia suspected inferior aspect right upper lobe posterior laterally. Images reviewed myself ED Course/Re-evaluation: 403 p.m.: Patient currently hemodynamically stable, negative perc score, low pretest suspicion for pulmonary embolus. At this time will hold on D-dimer. Will obtain EKG, troponin, chest x-ray and re-evaluated. If These are negative think the patient can be discharged. I reviewed her old medical records. 4:29 p.m.: Patient's x-ray is positive for right upper lobe infiltrate. She is maintaining normal saturations both at rest and with ambulation. No signs of respiratory distress. I Do not think that hospitalization is indicated at this time. She can be treated on outpatient basis, treated with azithromycin. States that she has sufficient funds to buy this prescription. - Data Points Laboratory Results: Laboratory Results 08/07/18 16:00 08/07/18 16:00 08/07/18 08/07/18 08/07/18 16:07 16:00 16:00 WBC RBC Hgb Hct MCV MCH MCHC RDW Plt Count MPV Neut % (Auto) Lymph % (Auto) Pickett % (Auto) Eos % (Auto) Baso % (Auto) Nucleat RBC Rel Count Absolute Neuts (auto) Absolute Lymphs (auto) Absolute Monos (auto) Absolute Eos (auto) Absolute Basos (auto) Absolute Nucleated RBC Immature Gran % Immature Gran # Sodium 137 mEq/L mEq/L (135-145) Potassium 4.5 mEq/L mEq/L (3.5-5.2) Chloride 112 mEq/L H mEq/L (97-110) Carbon Dioxide 20 mEq/l L mEq/l (22-31) Anion Gap 5 mEq/L L mEq/L (6-14) BUN 12 mg/dL mg/dL (7-23) Creatinine 0.7 mg/dL mg/dL (0.6-1.0) Estimated GFR > 60 Glucose 130 mg/dL H mg/dL (70-100) Calcium 9.1 mg/dL mg/dL (8.5-10.4) POC Troponin I 0.01 ng/mL ng/mL (0.00-0.08) Beta HCG, Qual NEGATIVE 08/07/18 16:00 WBC 8.79 10^3/uL 10^3/uL (3.80-9.50) RBC 4.78 10^6/uL 10^6/uL (4.18-5.33) Hgb 14.0 g/dL g/dL (12.6-16.3) Hct 41.7 % % (38.0-47.0) MCV 87.2 fL fL (81.5-99.8) MCH 29.3 pg pg (27.9-34.1) MCHC 33.6 g/dL g/dL (32.4-36.7) RDW 13.4 % % (11.5-15.2) Plt Count 310 10^3/uL 10^3/uL (150-400) MPV 10.5 fL fL (8.7-11.7) Neut % (Auto) 52.9 % % (39.3-74.2) Lymph % (Auto) 34.5 % % (15.0-45.0) Pickett % (Auto) 8.8 % % (4.5-13.0) Eos % (Auto) 2.6 % % (0.6-7.6) Baso % (Auto) 0.7 % % (0.3-1.7) Nucleat RBC Rel Count 0.0 % % (0.0-0.2) Absolute Neuts (auto) 4.66 10^3/uL 10^3/uL (1.70-6.50) Absolute Lymphs (auto) 3.03 10^3/uL H 10^3/uL (1.00-3.00) Absolute Monos (auto) 0.77 10^3/uL 10^3/uL (0.30-0.80) Absolute Eos (auto) 0.23 10^3/uL 10^3/uL (0.03-0.40) Absolute Basos (auto) 0.06 10^3/uL 10^3/uL (0.02-0.10) Absolute Nucleated RBC 0.00 10^3/uL 10^3/uL (0-0.01) Immature Gran % 0.5 % % (0.0-1.1) Immature Gran # 0.04 10^3/uL 10^3/uL (0.00-0.10) Sodium Potassium Chloride Carbon Dioxide Anion Gap BUN Creatinine Estimated GFR Glucose Calcium POC Troponin I Beta HCG, Qual Medications Given: Discontinued Medications Ondansetron HCl (Zofran) 4 mg IVP EDNOW ONE Stop: 08/07/18 16:33 Last Admin: 08/07/18 16:35 Dose: 4 mg Point of Care Test Results: Chemistry 08/07/18 16:07 POC Troponin I 0.01 ng/mL ng/mL (0.00-0.08) Departure - Departure Disposition: Home, Routine, Self-Care Clinical Impression: Chest pain Qualifiers: Chest pain type: unspecified Qualified Code(s): R07.9 - Chest pain, unspecified Pneumonia Qualifiers: Pneumonia type: due to unspecified organism Laterality: right Lung location: upper lobe of lung Qualified Code(s): J18.1 - Lobar pneumonia, unspecified organism Condition: Good Instructions: Chest Pain (ED), Bacterial Pneumonia (ED) Additional Instructions: Seek medical attention if you develop new or worsening chest pain, if you develop new or worsening shortness of breath, or any other symptoms that concern you. Referrals: [facility],. [Clinic] - As per Instructions Prescriptions: Azithromycin [Zithromax] 500 mg PO DAILY #1 tablet
[2018-08-07 16:21] LABS: PLATELET COUNT 310 10^3/uL (150-400)
[2018-08-07] MEDS ORDERED: ONDANSETRON 4 MG/2 ML VIAL IVP ONE (16:32)
[2018-08-07 17:15] VITALS: BP 143/75
--- NOTE | 2018-08-07 20:06 | CPEKG ---
Test Reason : OPEN Blood Pressure : / mmHG Vent. Rate : 069 BPM Atrial Rate : 068 BPM P-R Int : 157 ms QRS Dur : 102 ms QT Int : 420 ms P-R-T Axes : 045 055 063 degrees QTc Int : 450 ms Sinus rhythm Confirmed by Ronny Singh ([id number]) on 08/07/2018 8:06:04 PM Referred By: Confirmed By:Ronny Singh
== END 2018-08-07 17:05 | disposition home or self-care (01) ==
DX: R07.9 Chest pain, unspecified (principal); J18.1 Lobar pneumonia, unspecified organism; F17.200 Nicotine dependence, unspecified, uncomplicated
CPT/HCPCS: 84484-ER; 96374; J2405